=== PATIENT | male | born 1975 | race Caucasian/White ===

== ENCOUNTER 2016-10-18 18:33 | Emergency (ER) | payer OTHER ==
[2016-10-18 18:49] VITALS: BP 140/96; PULSE 66; RESP 18; TEMP 98; O2SAT 96
[2016-10-18] MEDS ORDERED: predniSONE 20 MG TAB PO ONE (18:53)
--- NOTE | 2016-10-18 18:54 | UCPHY ---
H & P Time Seen by Provider: 10/18/16 18:40 Patient Type: New HPI/ROS: 41-year-old male presents complaining left eye swelling sudden onset this afternoon gradually worsening. No eye pain, no blurred vision. Eye is watery and itchy. Review of systems General no fever no chills no weakness HEENT no eye pain no eye discharge. No eye redness, no sore throat Respiratory no cough, no shortness of breath Cardiac no chest pain, no peripheral edema GI no abdominal pain, no diarrhea, no constipation, no nausea, no vomiting no flank pain, no hematuria, no dysuria Musculoskeletal no myalgias, no joint pain Heme no easy bruising, no easy bleeding Endo no polyuria, no polydipsia Skin no rashes, no pruritus Neuro no syncope, no dizziness, no headaches Psych is no suicidal ideation, no homicidal ideation Past Medical/Surgical History: Noncontributory Social History: No excessive alcohol or drug use Smoking Status: Never smoked Physical Exam: 41-year-old male alert and oriented no acute distress nontoxic appearance Left eye with conjunctival swelling no erythema, full range of motion no exudate no discharge Alert and oriented in no acute distress nontoxic appearance, afebrile Atraumatic normocephalic Neck no JVD Lungs clear to auscultation, no respiratory distress Heart regular rate and rhythm Extremities no cyanosis clubbing edema Constitutional: Initial Vital Signs Temperature (C) 36.6 C 10/18/16 18:41 Heart Rate 66 10/18/16 18:41 Respiratory Rate 18 10/18/16 18:41 Blood Pressure 140/96 H 10/18/16 18:41 O2 Sat (%) 96 10/18/16 18:41 O2 Delivery Mode Room Air Allergies/Adverse Reactions: No Known Allergies Allergy (Unverified 10/27/12 18:04) Home Medications: Medication Instructions Recorded predniSONE 40 mg PO DAILY #6 tab 10/18/16 Medical Decision Making ED Course/Re-evaluation: Patient seen and evaluated for left eye swelling Physical exam with conjunctival edema no erythema consistent with chemosis Impression Allergic reaction/chemosis left conjunctiva Plan Allergy eyedrops Prednisone Cool compresses Follow-up PCP Diphenhydramine q.6 hours p.r.n. itching or swelling - Data Points Medications Given: Discontinued Medications Prednisone (Prednisone) 60 mg PO EDNOW ONE Stop: 10/18/16 18:54 Last Admin: 10/18/16 19:00 Dose: 60 mg Departure - Departure Disposition: Home, Routine, Self-Care Clinical Impression: Chemosis of left conjunctiva Condition: Good Instructions: Conjunctivitis (ED) Additional Instructions: Apply cool compresses every hour for 10-15 minutes Diphenhydramine 25-50 mg every 6 hours as needed for itching or swelling Allergy eyedrops such as Naphcon-A Short-term steroid burst. Referrals: DELIA PELAYO [Primary Care Provider] - As per Instructions Prescriptions: predniSONE 40 mg PO DAILY #6 tab - PQRS PQRS Measurement: na
== END 2016-10-18 19:05 | disposition home or self-care (01) ==
LOC: CED 18:33
DX: H11.422 Conjunctival edema, left eye (principal)
CPT/HCPCS: G0463-PO